=== PATIENT | male | born 1995 | race Caucasian/White ===

== ENCOUNTER 2018-06-22 03:26 | Emergency (ER) | payer SELFPAY ==
[2018-06-22 03:32] VITALS: BP 153/93; PULSE 71; RESP 18; TEMP 98.8
--- NOTE | 2018-06-22 03:34 | ED ---
ENT HPI - General Chief complaint: Dental/Oral Stated complaint: dental pain Time Seen by Provider: 06/22/18 03:33 Source: patient Mode of arrival: ambulatory Limitations: no limitations - History of Present Illness Initial comments: Keyur is a previously healthy 22-year-old male who presents to the emergency department today for evaluation of dental pain and concern for a dental infection. Patient reports that he knows he has a broken tooth, he's been unable to have dental follow-up. He reports he's had 2 days of worsening pain around his broken tooth and became concerned and it may be infected so he came to the ER for evaluation. Patient denies any associated symptoms including fevers, chills, nausea or vomiting. He still been able to eat and drink without difficulty. He has no history of dental infections or dental surgeries. His never been treated for dental infection the past. - Related Data Previous Rx's Medication Instructions Recorded Dicyclomine HCl [Bentyl] 20 mg PO QID PRN #10 tab 04/29/16 Ondansetron Odt [Zofran Odt] 4 mg PO Q12HR PRN #10 tab 04/29/16 Acetaminophen [Tylenol] 650 mg PO Q4H #60 tab 06/22/18 Ibuprofen [Motrin] 800 mg PO TID #30 tab 06/22/18 Penicillin V Potassium [Pen Vee K] 500 mg PO Q6HR 7 Days #28 tablet 06/22/18 Allergies Allergy/AdvReac Type Severity Reaction Status Date / Time No Known Allergies Allergy Verified 06/22/18 03:32 Review of Systems ROS Statement: Those systems with pertinent positive or pertinent negative responses have been documented in the HPI. ROS Other: All systems not noted in ROS Statement are negative. Past Medical History Past Medical History: No Reported History History of Any Multi-Drug Resistant Organisms: None Reported Past Surgical History: No Surgical Hx Reported Past Psychological History: No Psychological Hx Reported Smoking Status: Former smoker Past Alcohol Use History: None Reported Past Drug Use History: None Reported General Exam - General Exam Comments Initial Comments: Physical Exam GENERAL: Patient is well-developed and well-nourished. Patient is nontoxic and well- hydrated and is in no distress. HENT: Normocephalic, Atraumatic. Tooth #29 is noted to be broken with surrounding erythema, no palpable abscess No cervical lymphadenopathy No voice changes No trismus, no elevation of the floor of the mouth EYES: PERRL, EOMI PULMONARY: Unlabored respirations. CARDIOVASCULAR: RRR ABDOMEN: Soft and nontender with normal bowel sounds. SKIN: Skin is clear with no lesions or rashes and otherwise unremarkable. : Deferred NEUROLOGIC: Patient is alert and oriented x3. Moving all extremities spontaneously MUSCULOSKELETAL: Normal extremities with adequate strength and full range of motion. No lower extremity swelling or edema. No calf tenderness. PSYCHIATRIC: Normal psychiatric evaluation. Limitations: no limitations Limitations: no limitations Course Vital Signs 06/22/18 03:29 Temperature 98.8 F Pulse Rate 71 Respiratory 18 Rate Blood Pressure 153/93 O2 Sat by Pulse 98 Oximetry Medical Decision Making - Medical Decision Making Patient with a simple dental infection, no evidence of abscess, no evidence of systemic disease, no risk factors Offered patient a dental block for pain management, patient declined as he has a fear of needles We'll treat the patient with penicillin VK as he has no previous history of infections and no ALLERGIES, patient agreeable to this Discussed supportive care with warm water washes, soft diet, antibiotics, Tylenol and Motrin as needed for pain All questions pertaining to care were answered to the best my ability, return parameters were discussed and the patient was discharged home in stable condition. Disposition Clinical Impression: Dental caries, Toothache Disposition: HOME SELF-CARE Condition: Good Instructions: Dental Caries (ED), Toothache (ED) Prescriptions: Acetaminophen [Tylenol] 650 mg PO Q4H #60 tab Ibuprofen [Motrin] 800 mg PO TID #30 tab Penicillin V Potassium [Pen Vee K] 500 mg PO Q6HR 7 Days #28 tablet Is patient prescribed a controlled substance at d/c from ED?: No Referrals: None,Stated [Primary Care Provider] - 1-2 days
== END 2018-06-22 03:51 | disposition home or self-care (01) ==
LOC: EC 03:26
DX: K02.9 Dental caries, unspecified (principal); Z87.891 Personal history of nicotine dependence; Z53.29 Procedure and treatment not carried out because of patient's decision for other reasons
CPT/HCPCS: 99282